=== PATIENT | female | born 1970 | race Caucasian/White ===

== ENCOUNTER → 2016-10-17 | Outpatient (CLI) | payer BC ==
[~2016-10-17] MED LIST: IBP600T1 PO; OXYC-12 PO
--- NOTE | 2016-10-18 11:53 | Diagnostic Imaging Report ---
Bilateral screening mammogram. The current study was also evaluated with a Computer Aided Detection (CAD) system. INDICATION: Screening. No current complaints stated on the questionnaire. COMPARISON: None. This is a baseline study. FINDINGS: The breasts are composed of heterogeneously dense parenchyma which may decrease mammographic sensitivity. There are scattered benign-appearing calcifications seen. Allowing for technique and positional differences, no suspicious change is seen. IMPRESSION: Dense breasts with no definite change. ACR BI-RADS Category 2: Benign findings. Result letter will be mailed to the patient. Note: At least 10% of breast cancer is not imaged by mammography. Dictated by: Dictated on workstation # [id number]
== END ==
LOC: RAD 13:14
PROVIDERS: ATTEND Obstetrics & Gynecology
DX: Z12.31 Encounter for screening mammogram for malignant neoplasm of breast (principal)
CPT/HCPCS: 77067

== ENCOUNTER 2019-08-26 15:15 | Emergency (ER) | payer BC, OTHER ==
[~2019-08-26] VITALS: Ht 167 cm; Wt 91.0 kg
--- NOTE | 2019-08-26 16:08 | ED Lower Extremity ---
General Chief Complaint: Lower Extremity Stated Complaint: LEG SWELLING RE LEG Nursing Triage Note: ARRIVED VIA AMB TO TRIAGE. ABSCESS RIGHT LOWER ZULUAGA FOR ABOUT A WEEK. HAS BEEN TAKING HER HUSBANDS AMOXICILLIN 500MG QID SINCE FRIDAY AND ITS NOT BETTER. Nursing Sepsis Screen: No Definite Risk Source: patient Exam Limitations: no limitations History of Present Illness Date Seen by Provider: Aug 26, 2019 Time Seen by Provider: 16:05 Initial Comments To ER with area of redness and pain to the anterior right lower leg. It is been present for about one week. She is without fevers or chills. 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 This was treated at [facility] in [place]. She has chronic swelling intermittently to the leg over the past years. a few days ago while wrapping presents she had sudden onset of a sharp pain right anterior lower leg. The area initially was a little bit red, since then it now has a tender nodule increasing redness around it.Does not have a PCP Onset: just prior to arrival Severity: moderate Pain/Injury Location: right leg Method of Injury: unknown Modifying Factors: Worse With Movement Allergies and Home Medications Allergies Coded Allergies: No Known Drug Allergies (Unverified , 07/20/12) Home Medications Cephalexin 500 Mg Tablet, 500 MG PO TID Prescribed by: YANN PETTY on 08/26/191748 Sulfamethoxazole/Trimethoprim 1 Each Tablet, 1 EACH PO BID Prescribed by: YANN PETTY on 08/26/191748 Patient Home Medication List Home Medication List Reviewed: Yes Review of Systems Constitutional: see HPI EENTM: see HPI Respiratory: no symptoms reported Cardiovascular: no symptoms reported Genitourinary: no symptoms reported Musculoskeletal: see HPI Skin: no symptoms reported Psychiatric/Neurological: No Symptoms Reported Past Fizfpod-Xheyix-Lssutv Hx Patient Social History Alcohol Use: Occasionally Uses Recreational Drug Use: No Smoking Status: Never a Smoker Recent Foreign Travel: No Contact w/Someone Who Travel: No Recent Infectious Disease Expo: No Recent Hopitalizations: Yes (TOE AMPUTATION) Past Medical History Surgeries: Yes (TOE AMPUTATION) Respiratory: No Cardiac: No Neurological: No Reproductive Disorders: Yes (CERVICAL DYSPLASIA) Genitourinary: No Gastrointestinal: No Musculoskeletal: No Endocrine: No Psychosocial: No Integumentary: No Blood Disorders: No Physical Exam Vital Signs Vital Signs - First Documented 08/26/19 15:35 Temp 37.0 Pulse 80 Resp 16 B/P (MAP) 110/78 (89) Pulse Ox 97 O2 Delivery Room Air Capillary Refill : Less Than 3 Seconds Height, Weight, BMI Height: '" Weight: lbs. oz. kg; 32.00 BMI Method: General Appearance: WD/WN, no apparent distress HEENT: PERRL/EOMI, normal ENT inspection Respiratory: no respiratory distress, no accessory muscle use Hips: bilateral hip non-tender, bilateral hip normal inspection, bilateral hip normal range of motion Legs: right leg other (to the anterior right lower leg is a about a 1.5 cm nodule elevated off the skin, tender to palpation. There is about 3-4 cm of surrounding erythema around this. No lymphangitis.) Knees: bilateral knee non-tender, bilateral knee normal inspection, bilateral knee normal range of motion Ankles: bilateral ankle non-tender, bilateral ankle normal inspection, bilateral ankle normal range of motion Feet: bilateral foot non-tender, bilateral foot normal inspection, bilateral foot normal range of motion Neurologic/Psychiatric: alert, normal mood/affect, oriented x 3 Skin: normal color, warm/dry Procedures/Interventions I&D : Blade Size: 11 Progress Moderate amount of purulent material expressed. Culture collected and sent to lab. Progress/Results/Core Measures Results/Orders Micro Results Microbiology 08/26/19 Gram Stain - Final, Resulted 08/26/19 Wound Culture - Preliminary, Resulted Staphylococcus aureus My Orders Orders - YANN PETTY APRN Soft Tissue Unlisted [id number] (08/26/19 16:03) Wound Culture (08/26/19 17:47) Vital Signs/I&O 08/26/19 08/26/19 15:35 17:54 Temp 37.0 37.0 Pulse 80 80 Resp 16 16 B/P (MAP) 110/78 (89) 110/78 (89) Pulse Ox 97 97 O2 Delivery Room Air Blood Pressure Mean: 89 Departure Impression Primary Impression: Abscess Disposition: 01 HOME, SELF-CARE Condition: Improved Departure-Patient Inst. Decision time for Depature: 17:48 Referrals: NO,LOCAL PHYSICIAN (PCP) Primary Care Physician Patient Instructions: ABSCESS Add. Discharge Instructions: 1. Stop taking the amoxicillin, start taking the cephalexin and the trimethoprim/sulfamethoxazole. You can shower allowing water run over the starting tonight. Change the dressing as needed to collect the drainage. The drainage stops then you can leave it open to air. Expect improvement to be noticed in about 36 hours. All discharge instructions reviewed with patient and/or family. Voiced understanding. Scripts Sulfamethoxazole/Trimethoprim (Bactrim Ds Tablet) 1 Each Tablet 1 EACH PO BID, #14 TAB Prov: YANN PETTY APRN 08/26/19 Cephalexin (Cephalexin) 500 Mg Tablet 500 MG PO TID, #20 TAB 0 Refills Prov: YANN PETTY APRN 08/26/19 Copy Copies To 1: ANGELA PANTOJA PETER J APRN Aug 26, 2019 16:08
--- NOTE | 2019-08-26 16:56 | Diagnostic Imaging Report ---
INDICATION: Red bump on right anterior lower leg. TECHNIQUE: Multiple real time fung scale sonographic images were obtained of the right anterior leg, palpable area of concern. CORRELATION STUDY: None. FINDINGS: The soft tissues just below the skin surface, in the area of palpable concern, demonstrate a heterogeneous masslike region. This area measures approximately 4.2 x 3.9 x 2.1 cm. There is more hypoechoic echogenicity, centrally. No significant abnormal vascular blood flow. IMPRESSION: Indeterminate, approximately 4 cm mass at the area of palpable concern of the right anterior leg. This finding could reflect perhaps a hematoma and/or abscess. Depending upon clinical correlation, there is what appears to be likely a small amount of fluid centrally which could be potentially aspirated. Dictated by: Dictated on workstation # [id number]
[2019-08-26] MEDS ORDERED: SULF1TAB35 PO (17:49)
[2019-08-26] MEDS ORDERED: CEPH500T PO (17:49)
[2019-08-26 17:54] VITALS: BP 110/78
== END 2019-08-26 17:53 | disposition home or self-care (01) ==
LOC: EDUNIT# 15:15 → ER 15:17
DX: L02.415 Cutaneous abscess of right lower limb (principal)
CPT/HCPCS: 10060; 76999; 87070; 87077; 87186; 87205

== ENCOUNTER → 2020-10-31 | Outpatient (CLI) | payer OTHER ==
[~2020-10-31] MED LIST changes: +CEPH500T PO; +SULF1TAB35 PO
--- NOTE | 2020-10-31 12:55 | Diagnostic Imaging Report ---
Indication: Routine screening. Comparison is made with prior mammogram 10/17/2016. 2-D and 3-D bilateral screening mammography was performed with CAD. Both breasts remain heterogeneously dense, limiting the sensitivity of mammography. There are benign calcifications. No spiculated mass or malignant appearing microcalcifications are seen. Axillae are unremarkable. IMPRESSION: BI-RADS Category 2 No mammographic features suspicious for malignancy are identified. ACR BI-RADS Category 2: Benign findings. Result letter will be mailed to the patient. Note: At least 10% of breast cancer is not imaged by mammography. Dictated by: Dictated on workstation # [id number]
== END ==
LOC: RAD 10:48
PROVIDERS: ATTEND Obstetrics & Gynecology
DX: Z12.31 Encounter for screening mammogram for malignant neoplasm of breast (principal)
CPT/HCPCS: 77063; 77067